=== PATIENT | female | born 1970 | race Two or more races ===

== ENCOUNTER 2016-11-14 21:39 | Emergency (ER) | payer MEDICAID ==
[2016-11-14 22:40] VITALS: BP 150/88
== END 2016-11-14 22:40 | disposition home or self-care (01) ==
LOC: ED 21:39
DX: J30.9 Allergic rhinitis, unspecified (principal)
CPT/HCPCS: J1200; J7512

== ENCOUNTER 2017-09-12 22:25 | Emergency (ER) | payer MEDICAID ==
[~2017-09-12] VITALS: Ht 167.6 cm; Wt 79.1 kg
[2017-09-12 22:37] VITALS: Ht 167.6 cm; Wt 79.1 kg
[2017-09-13 00:51] LABS: UA SPECIFIC GRAVITY >=1.030 (1.005-1.035); microscopic required? YES; urine erythrocyte NEGATIVE (NEGATIVE)
[2017-09-13 00:54] LABS: BASOPHIL % 0.2 % (0-2); PLATELET COUNT 221 x10^3mcL (130-400)
[2017-09-13 00:55] LABS: RED CELL DISTRIBUTION WIDTH 17.4 % (11.5-14.5)
[2017-09-13 01:00] LABS: CALCIUM 8.1 mg/dL (8.5-10.1); CARBON DIOXIDE 25.9 mmol/L (21-32); CHLORIDE SERUM 102 mmol/L (98-107); CREATININE SERUM 0.6 mg/dL (0.6-1.0); GFR1 > 60 mL/min; GLUCOSE SERUM 141 mg/dL (74-106); POTASSIUM SERUM 3.3 mmol/L (3.5-5.1); SODIUM SERUM 137 mmol/L (136-145)
[2017-09-13 01:05] LABS: ALBUMIN 3.8 g/dL (3.4-5.0); ALKALINE PHOSPHATASE 78 U/L (46-116); ALT/SGPT 34 U/L (14-59); AST/SGOT 39 U/L (15-37); BILIRUBIN TOTAL 0.7 mg/dL (0.20-1.00); LIPASE 122 IU/L (73-393); TOTAL PROTEIN, SERUM 7.3 g/dL (6.4-8.2)
[2017-09-13 03:58] VITALS: BP 113/62
== END 2017-09-13 03:58 | disposition home or self-care (01) ==
LOC: ED 22:25
PROVIDERS: Emergency Medicine
DX: N83.8 Other noninflammatory disorders of ovary, fallopian tube and broad ligament (principal)
CPT/HCPCS: 83880; J1885; J2270; J2405; J7030